=== PATIENT | female | born 1970 | race Caucasian/White ===

== ENCOUNTER → 2022-05-03 | Day surgery (SDC) | payer BC ==
[~2022-05-03] MED LIST: BLISOVI FE 1-21 EACH PO; CANDICIDAL CAP1 EACH PO; FENTANYL CITRATE/PF 100MCG/2 ML INJ ONE; GLUCOSAMINE1000 MG PO; LISINOPRIL5 MG PO; MIDAZOLAM HCL 2 MG/2 ML VIAL ONE; MULTI-VITAMIN1 EACH PO; OR PHACO EYE KIT ONE; PREOP PHACO EYE KIT ONE
[2022-05-03 14:40] VITALS: BP 141/90
== END | disposition home or self-care (01) ==
LOC: OR 10:04
PROVIDERS: ATTEND Ophthalmology
DX: H25.11 Age-related nuclear cataract, right eye (principal); I10 Essential (primary) hypertension; E78.5 Hyperlipidemia, unspecified; R94.31 Abnormal electrocardiogram [ECG] [EKG]; Z79.899 Other long term (current) drug therapy; Z86.16 Personal history of COVID-19
CPT/HCPCS: 66984; 81025; J2250; J3010; V2788

== ENCOUNTER → 2022-05-17 | Day surgery (SDC) | payer BC ==
[2022-05-17 15:34] VITALS: BP 132/83
== END | disposition home or self-care (01) ==
LOC: OR 11:05
PROVIDERS: ATTEND Ophthalmology
DX: H25.12 Age-related nuclear cataract, left eye (principal); I10 Essential (primary) hypertension; Z79.899 Other long term (current) drug therapy
CPT/HCPCS: 66984; 81025; J2250; J3010; V2788